=== PATIENT | female | born 2005 | race Caucasian/White ===

== ENCOUNTER 2024-06-03 05:47 | Emergency (ER) | payer BC ==
[2024-06-03 07:22] LABS: CORONAVIRUS COVID-19 NAA NEGATIVE (NEGATIVE); INFLUENZA A NAA NEGATIVE (NEGATIVE); RESPIRATORY SYNCYTIAL VIR NAA NEGATIVE (NEGATIVE)
[2024-06-03] MEDS: Penicillin G Benzathine 1,200,000 Units/2 ML Syringe IM ONE (08:23)
== END 2024-06-03 08:30 | disposition home or self-care (01) ==
LOC: JD.ED 05:47
DX: J03.00 Acute streptococcal tonsillitis, unspecified (principal); Z79.899 Other long term (current) drug therapy
CPT/HCPCS: 0241U; 87651; 96372; 99283; J0561

== ENCOUNTER 2025-05-28 10:07 | Day surgery (SDC) | payer BC ==
[~2025-05-28 10:07] MED LIST: Sodium Chloride 0.9% 10 ML Syringe FLUSH PRN; Sodium Chloride 0.9% 10 ML Syringe FLUSH SCH
[2025-05-28] MEDS ORDERED: Dexamethasone 4 MG/ML 5 ML MDV ONE ×2 (11:02→11:36)
[2025-05-28] MEDS: Lactated Ringers 1,000 ML IV SCH (11:14)
[2025-05-28] MEDS ORDERED: Ketorolac 30 MG/ML SDV ONE (11:36)
[2025-05-28] MEDS ORDERED: Ondansetron 4 MG/2 ML SDV ONE ×2 (11:36→13:01)
[2025-05-28] MEDS ORDERED: propofoL 500 MG/50 ML 50 ML ONE (11:37)
[2025-05-28] MEDS ORDERED: fentaNYL 250 MCG/5 ML SDV ONE (11:41)
[2025-05-28] MEDS ORDERED: Glycopyrrolate 0.2 MG/ML 2 ML SDV ONE (12:17)
[2025-05-28] MEDS: EPINEPHrine 1 MG/ML SDV ONE (12:18)
[2025-05-28] MEDS ORDERED: dexmedeTOMIDine HCl 200 MCG/2 ML SDV ONE (12:31)
[2025-05-28] MEDS ORDERED: Propofol 200 MG/20 ML SDV ONE (12:43)
[2025-05-28] MEDS ORDERED: Lactated Ringers 1,000 ML ONE (12:46)
[2025-05-28] MEDS ORDERED: Acetaminophen Soln 650 MG/20.3 ML UD Cup PO PRN (13:14)
[2025-05-28] MEDS ORDERED: droPERidol 2.5 MG/ML SDV IV PRN (13:14)
[2025-05-28] MEDS ORDERED: Naloxone 0.4 MG/ML SDV IVPUSH PRN ×2 (13:14)
[2025-05-28] MEDS: fentaNYL 100 MCG/2 ML SDV IVPUSH PRN (13:22)
[2025-05-28] MEDS: Ondansetron 4 MG/2 ML SDV IVPUSH PRN (16:03)
== END 2025-05-28 16:15 | disposition home or self-care (01) ==
LOC: JD.SDS 10:07
PROVIDERS: ATTEND Surgery
DX: K80.10 Calculus of gallbladder with chronic cholecystitis without obstruction (principal); Z91.013 Allergy to seafood; Z79.899 Other long term (current) drug therapy
CPT/HCPCS: 47562; A9270; J0169; J0665; J0690; J1100; J1596; J1885; J2003; J2405; J2704; J3010; J7120; 00790; J1171; J3490